=== PATIENT | female | born 1970 | race African-American/Black ===

== ENCOUNTER 2021-02-05 02:24 | Emergency (ER) | payer MEDICAID, OTHER ==
[~2021-02-05] VITALS: Ht 165.1 cm; Wt 68.0 kg
[2021-02-05] MEDS ORDERED: HYDROCODONE/ACETAMINOPHEN 5/325MG TABLET PO STA (04:20)
[2021-02-05] MEDS ORDERED: NEOMY SULF/BACITRAC ZN/POLY OINT 28GM TOP STA (04:20)
[2021-02-05] MEDS ORDERED: CEPH500T MT (04:58)
[2021-02-05] MEDS ORDERED: IBUP-2029 MT ×2 (04:58)
[2021-02-05 05:50] VITALS: BP 123/76
== END 2021-02-05 06:02 | disposition home or self-care (01) ==
LOC: ER 02:24
DX: T24.231A Burn of second degree of right lower leg, initial encounter (principal); T31.0 Burns involving less than 10% of body surface; X01.8XXA Other exposure to uncontrolled fire, not in building or structure, initial encounter; Y93.89 Activity, other specified; Y92.488 Other paved roadways as the place of occurrence of the external cause
CPT/HCPCS: 99283

== ENCOUNTER 2021-02-09 01:20 | Emergency (ER) | payer MEDICAID ==
[~2021-02-09] VITALS: Ht 165.1 cm; Wt 69.0 kg
[~2021-02-09 01:20] MED LIST: CEPH500T MT
[2021-02-09] MEDS ORDERED: BACITRACIN ZINC OINT UDPKT TOP ONE (02:15)
[2021-02-09] MEDS ORDERED: TRAM50TA MT (02:33)
[2021-02-09] MEDS ORDERED: SILV50CR31 TP (02:36)
[2021-02-09 02:57] VITALS: BP 121/68
== END 2021-02-09 02:55 | disposition home or self-care (01) ==
LOC: ER 01:20
DX: T25.291A Burn of second degree of multiple sites of right ankle and foot, initial encounter (principal); T79.9XXA Unspecified early complication of trauma, initial encounter; Z88.8 Allergy status to other drugs, medicaments and biological substances; Z79.899 Other long term (current) drug therapy; Z98.890 Other specified postprocedural states; Y92.89 Other specified places as the place of occurrence of the external cause
CPT/HCPCS: 16020; 99283

== ENCOUNTER 2021-02-16 02:23 | Emergency (ER) | payer MEDICAID ==
[~2021-02-16] VITALS: Ht 165.1 cm; Wt 69.0 kg
[~2021-02-16 02:23] MED LIST changes: +SILV50CR31 TP; +TRAM50TA MT
[2021-02-16 02:49] VITALS: BP 127/70
[2021-02-16] MEDS ORDERED: BO1 TP (03:07)
[2021-02-16] MEDS ORDERED: BACITRACIN ZINC OINT UDPKT TOP ONE (03:15)
[2021-02-16] MEDS ORDERED: TRAMADOL 50MG TABLET PO ONE (03:15)
== END 2021-02-16 04:41 | disposition home or self-care (01) ==
LOC: ER 02:23
DX: T24.232A Burn of second degree of left lower leg, initial encounter (principal); T31.44 Burns involving 40-49% of body surface with 40-49% third degree burns; Z88.6 Allergy status to analgesic agent; T79.9XXA Unspecified early complication of trauma, initial encounter; X08.8XXA Exposure to other specified smoke, fire and flames, initial encounter; Y93.89 Activity, other specified; Y92.89 Other specified places as the place of occurrence of the external cause; Y99.8 Other external cause status
CPT/HCPCS: 16020; 99283

== ENCOUNTER 2021-02-22 00:47 | Emergency (ER) | payer MEDICAID ==
[~2021-02-22] VITALS: Ht 165.1 cm; Wt 70.0 kg
[~2021-02-22 00:47] MED LIST changes: +BO1 TP
[2021-02-22 00:55] VITALS: BP 145/79
[2021-02-22] MEDS ORDERED: BACITRACIN ZINC OINT UDPKT TOP ONE (01:15)
[2021-02-22] MEDS ORDERED: ACET-2708 PO (01:30)
[2021-02-22] MEDS ORDERED: ACETAMINOPHEN 325MG TABLET PO STA (01:34)
== END 2021-02-22 02:05 | disposition home or self-care (01) ==
LOC: ER 01:53
DX: T25.211A Burn of second degree of right ankle, initial encounter (principal); Z48.02 Encounter for removal of sutures; T31.0 Burns involving less than 10% of body surface; X08.8XXA Exposure to other specified smoke, fire and flames, initial encounter; Y93.89 Activity, other specified; Y92.89 Other specified places as the place of occurrence of the external cause; Y99.8 Other external cause status
CPT/HCPCS: 99282